=== PATIENT | male | born 1960 ===

== ENCOUNTER 2021-07-14 11:39 | Observation (INO) ==
[2021-07-14] MEDS: Nitroglycerin 0.4 MG TAB.SUBL SL PRN ×2 (12:03→12:08)
[2021-07-14 12:17] LABS: Hemoglobin 15.5 g/dL (12.9-16.9)
[2021-07-14 12:22] LABS: Prothrombin Time 10.9 Seconds (9.4-12.1); Red Cell Distribution Width 13.7 % (11.5-14.5)
[2021-07-14 12:24] LABS: Basophils # 0.1 K/mcL (0.0-0.2); Eosinophils # 0.4 K/mcL (0.0-0.6); Eosinophils % 4.9 %; Hematocrit 46.9 % (37.5-50.1); Immature Granulocytes % 0.3 % (0-4); Lymphocytes # 1.9 K/mcL (0.6-4.6); Lymphocytes % 25.8 %; Mean Corpuscular Hemoglobin 29.4 pg (28.0-33.3); Monocytes # 0.8 K/mcL (0.0-1.3); Monocytes % 10.6 %; Neutrophils # 4.2 K/mcL (1.6-8.9); Red Blood Count 5.27 M/mcL (4.19-5.50); Segmented Neutrophils % 57.4 %; White Blood Count 7.3 K/mcL (4.3-11.1)
[2021-07-14 12:25] LABS: Activated Partial Thrombo Time 33.7 Seconds (26.0-36.0)
[2021-07-14 12:38] LABS: Alanine Aminotransferase 22 Units/L (7-52); Albumin/Globulin Ratio 1.5 (1.1-2.2); Alkaline Phosphatase 65 Units/L (34-104); Aspartate Amino Transferase 21 Units/L (13-39); BUN/Creatinine Ratio 21 (6-26); Bilirubin,Direct 0.1 mg/dL (0.0-0.2); Bilirubin,Indirect 0.5 mg/dL (0.0-1.0); Bilirubin,Total 0.6 mg/dL (0.3-1.0); Blood Urea Nitrogen 15 mg/dL (6-20); Calcium 8.8 mg/dL (8.6-10.3); Carbon Dioxide 26 mEq/L (23-29); Chloride 106 mEq/L (98-107); Globulin 2.7 g/dL (2.4-3.5); Glucose 103 mg/dL (70-105); Lipase 34 Units/L (11-82); Osmolality,Calculated 287 (280-300); Potassium 4.1 mEq/L (3.5-5.1); Sodium 138 mEq/L (136-145); Total Protein 6.7 g/dL (6.4-8.9); Troponin I < 0.03 ng/mL (< 0.04); eGFR For African Americans > 60 (> 60); eGFR For Non-African Americans > 60 (> 60)
[2021-07-14 13:17] LABS: Mean Platelet Volume 9.9 fL (9.4-12.4)
[2021-07-14] MEDS ORDERED: Melatonin 3 MG TABLET PO PRN (13:59)
[2021-07-14] MEDS ORDERED: Naloxone 0.4 MG/ML INJ IVP PRN (13:59)
[2021-07-14] MEDS ORDERED: Perflutren Lipid Microsphere 1.3 ML in 0.9 % Sodium Chloride 8.7 ML IVP PRN (14:03)
[2021-07-14 14:35] LABS: Amphetamine Screen,Urine Negative ng/mL (Cutoff=1000); Barbiturate Screen,Urine Negative ng/mL (Cutoff=200); Benzodiazepines Screen,Urine Negative ng/mL (Cutoff=200); Cannabinoid Screen,Urine Negative ng/mL (Cutoff = 50); Cocaine Screen,Urine Negative ng/mL (Cutoff= 300); Opiate Screen,Urine Negative ng/mL (Cutoff=300); Phencyclidine Screen,Urine Negative ng/mL (Cutoff=25)
[2021-07-14] MEDS ORDERED: *HR* LORazepam 2 MG/ML VIAL IVP PRN ×3 (15:52)
[2021-07-15 05:19] LABS: Basophils % 0.6 %
[2021-07-15 05:21] LABS: Basophils # 0.1 K/mcL (0.0-0.2); Eosinophils # 0.5 K/mcL (0.0-0.6); Eosinophils % 5.9 %; Hematocrit 44.9 % (37.5-50.1); Hemoglobin 15.2 g/dL (12.9-16.9); Immature Granulocytes % 0.4 % (0-4); Lymphocytes # 2.2 K/mcL (0.6-4.6); Mean Corpuscular HGB Conc 33.9 g/dL (31.6-35.5); Mean Corpuscular Hemoglobin 29.5 pg (28.0-33.3); Mean Corpuscular Volume 87.2 fL (83.0-100.0); Monocytes % 10.5 %; Neutrophils # 5.3 K/mcL (1.6-8.9); Red Blood Count 5.15 M/mcL (4.19-5.50); Red Cell Distribution Width 13.5 % (11.5-14.5); Segmented Neutrophils % 58.6 %; White Blood Count 9.1 K/mcL (4.3-11.1)
[2021-07-15 05:41] LABS: Alanine Aminotransferase 19 Units/L (7-52); Albumin 3.7 g/dL (3.5-5.7); Albumin/Globulin Ratio 1.6 (1.1-2.2); Alkaline Phosphatase 56 Units/L (34-104); Aspartate Amino Transferase 18 Units/L (13-39); BUN/Creatinine Ratio 14 (6-26); Bilirubin,Total 1.6 mg/dL (0.3-1.0); Blood Urea Nitrogen 9 mg/dL (6-20); Calcium 8.6 mg/dL (8.6-10.3); Carbon Dioxide 25 mEq/L (23-29); Chloride 106 mEq/L (98-107); Chol/HDL Ratio 4.4 (0-4.9); Cholesterol 199 mg/dL (< 200); Globulin 2.3 g/dL (2.4-3.5); Glucose 106 mg/dL (70-105); HDL Cholesterol 45 mg/dL (40-59); LDL Cholesterol,Calculated 125 mg/dL (< 100); Osmolality,Calculated 283 (280-300); Potassium 3.9 mEq/L (3.5-5.1); Sodium 137 mEq/L (136-145); Triglycerides 146 mg/dL (< 150); eGFR For African Americans > 60 (> 60); eGFR For Non-African Americans > 60 (> 60)
[2021-07-15] MEDS ORDERED: Regadenoson 0.4 MG/5 ML SYRINGE IVP ONE (07:34)
[2021-07-15] MEDS ORDERED: Thiamine (B-1) 100 MG TABLET PO SCH (09:00)
[2021-07-15] MEDS ORDERED: Folic Acid 1 MG TABLET PO SCH (09:00)
[2021-07-15] MEDS ORDERED: Aspirin 81 MG TAB.CHEW PO SCH (09:00)
[2021-07-15 10:47] VITALS: BP 151/89; PULSE 63; TEMP 97.5; O2SAT 97
== END 2021-07-15 12:00 | disposition home or self-care (01) ==
LOC: EMEROOARM 11:39 → 3BNU 11:39 → SUATTDRO 14:23 → 3BNU 14:42
PROVIDERS: ADMIT Internal Medicine; ATTEND Family Medicine